=== PATIENT | male | born 1970 | race Caucasian/White ===

== ENCOUNTER 2016-11-25 22:23 | Inpatient (IN) | payer OTHER ==
[~2016-11-25] VITALS: Ht 175.3 cm; Wt 120.1 kg
[2016-11-25 22:39] VITALS: BP 172/92; PULSE 89; RESP 18; TEMP 98.3; O2SAT 99
[2016-11-25] MEDS ORDERED: ONDANSETRON ODT 4 MG TAB PO ONE (22:45)
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
[2016-11-26] VITALS (7 sets, daily range): BP systolic 125–156; BP diastolic 64–87; PULSE 72–89; RESP 18–20; TEMP 97–98.4; O2SAT 96–100
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
[2016-11-26] MEDS ORDERED: SODIUM CHLOR 0.9% 1000 ML INJ 1,000 ML IV ONE (02:45)
[2016-11-26] MEDS ORDERED: MORPHINE SULFATE 4 MG/ML INJ IV PUSH ONE (02:45)
[2016-11-26] MEDS ORDERED: SODIUM CHLORIDE 0.9% FLUSH 5 ML FLUSH IVF PRN (03:00)
[2016-11-26] MEDS ORDERED: MISCELLANEOUS NURSING INFORMATION XX SCH (03:00)
[2016-11-26] MEDS ORDERED: CHLORHEXIDINE GLUCONATE 2 % 1 PACK (2 CLOTHS) TOP PRN (03:00)
[2016-11-26] MEDS ORDERED: ACETAMINOPHEN/HYDROcodone 325 MG/5 MG TAB PO PRN (03:00)
[2016-11-26] MEDS ORDERED: ONDANSETRON HCL 4 MG/2 ML VIAL IV PRN (03:00)
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
[2016-11-26 03:39] LABS: BASOPHIL # 0.1 TH/MM3 (0-0.2); BASOPHIL % 0.3 % (0.0-2.0); EOSINOPHIL # 0.1 TH/MM3 (0-0.4); EOSINOPHIL % 0.3 % (0.0-4.0); HEMATOCRIT 41.5 % (39.0-51.0); HEMO FLAGS DIFF FINAL; LYMPH % 16.7 % (9.0-44.0); LYMPHOCYTE # 3.1 TH/MM3 (1.0-4.8); MEAN CELL VOLUME 88.8 FL (80.0-100.0); MEAN CORPUSCULAR HGB CONC 34.9 % (32.0-36.0); MONO % 5.9 % (0.0-8.0); NEUT % 76.8 % (16.0-70.0); PLATELET COUNT 257 TH/MM3 (150-450); RED BLOOD COUNT 4.67 MIL/MM3 (4.50-5.90); RED CELL DISTRIBUTION WIDTH 13.4 % (11.6-17.2); WHITE BLOOD COUNT 18.2 TH/MM3 (4.0-11.0)
[2016-11-26] MEDS: CHLORHEXIDINE GLUCONATE 2 % 1 PACK (2 CLOTHS) TOP SCH (04:00)
[2016-11-26 04:06] LABS: BICARBONATE 26.2 MEQ/L (21.0-32.0); POTASSIUM 3.6 MEQ/L (3.5-5.1)
[2016-11-26] MEDS: LACTATED RINGER'S 1000 ML INJ 1,000 ML IV SCH ×2 (04:18→14:43)
[2016-11-26 04:48] LABS: CKMB 4.9 NG/ML (0.5-3.6)
[2016-11-26] MEDS: ACETAMINOPHEN/HYDROcodone 325 MG/5 MG TAB PO PRN ×5 (05:09→21:21)
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
[2016-11-26] MEDS: ENOXAPARIN SODIUM 30 MG/0.3 ML SYRINGE SQ SCH ×2 (06:34→17:50)
[2016-11-26] MEDS: KETOROLAC TROMETHAMINE 30 MG/ML (IVP) VIAL IV PUSH SCH ×4 (06:34→23:32)
[2016-11-26] MEDS: METHOCARBAMOL 500 MG TAB PO SCH ×3 (06:34→21:13)
[2016-11-26] MEDS: DOCUSATE SODIUM 50 MG/SENNA 8.6 MG TAB PO SCH ×2 (09:07→21:12)
[2016-11-26] MEDS: FAMOTIDINE 20 MG TAB PO SCH ×2 (09:07→21:12)
[2016-11-26] MEDS: BACITRACIN/POLYMYXIN B 15 GM TUBE TOPICAL SCH ×2 (14:00→21:14)
[2016-11-26] MEDS: GABAPENTIN 400 MG CAP PO SCH ×2 (14:33→17:50)
[2016-11-26] MEDS: HYDROmorphone HCL PF 1 MG/ML VIAL IV PUSH PRN ×2 (14:36→23:33)
[2016-11-27] VITALS: BP 129/70; PULSE 68; RESP 20; TEMP 97.3; O2SAT 99
[2016-11-27] MEDS: ACETAMINOPHEN/HYDROcodone 325 MG/5 MG TAB PO PRN ×5 (03:25→22:11)
[2016-11-27] MEDS: LACTATED RINGER'S 1000 ML INJ 1,000 ML IV SCH ×2 (03:25→08:19)
[2016-11-27 04:00] VITALS: BP 131/73; PULSE 66; RESP 20; TEMP 96; O2SAT 99
[2016-11-27] MEDS: CHLORHEXIDINE GLUCONATE 2 % 1 PACK (2 CLOTHS) TOP SCH (04:00)
[2016-11-27] MEDS: METHOCARBAMOL 500 MG TAB PO SCH ×3 (06:07→22:09)
[2016-11-27] MEDS: KETOROLAC TROMETHAMINE 30 MG/ML (IVP) VIAL IV PUSH SCH ×3 (06:08→17:11)
[2016-11-27] MEDS: ENOXAPARIN SODIUM 30 MG/0.3 ML SYRINGE SQ SCH ×2 (06:08→17:01)
[2016-11-27 08:00] VITALS: BP 141/92; PULSE 65; RESP 18; TEMP 97.6; O2SAT 97
[2016-11-27] MEDS ORDERED: WALKER WHEELS/F1 MIS (08:08)
[2016-11-27] MEDS: GABAPENTIN 400 MG CAP PO SCH ×3 (08:12→17:10)
[2016-11-27] MEDS: FAMOTIDINE 20 MG TAB PO SCH ×2 (08:12→22:09)
[2016-11-27] MEDS: DOCUSATE SODIUM 50 MG/SENNA 8.6 MG TAB PO SCH ×2 (08:13→22:09)
[2016-11-27] MEDS: HYDROmorphone HCL PF 1 MG/ML VIAL IV PUSH PRN (11:30)
[2016-11-27] MEDS: BACITRACIN/POLYMYXIN B 15 GM TUBE TOPICAL SCH ×2 (11:35→22:11)
[2016-11-27 12:19] VITALS: BP 130/81; PULSE 69; RESP 18; TEMP 97.5; O2SAT 95
[2016-11-27] MEDS ORDERED: LACTULOSE SYRUP 20 GM/30 ML CUP PO SCH (15:15)
[2016-11-27 16:00] VITALS: BP 130/86; PULSE 74; RESP 18; TEMP 96.4; O2SAT 98
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
[2016-11-27 20:05] VITALS: BP 128/67; PULSE 71; RESP 20; TEMP 98.2; O2SAT 98
[2016-11-28] VITALS: BP 105/63; PULSE 71; RESP 20; TEMP 98.1; O2SAT 96
[2016-11-28] MEDS: KETOROLAC TROMETHAMINE 30 MG/ML (IVP) VIAL IV PUSH SCH ×3 (00:20→11:55)
[2016-11-28 04:00] VITALS: BP 125/67; PULSE 66; RESP 20; TEMP 96.9; O2SAT 98
[2016-11-28] MEDS: METHOCARBAMOL 500 MG TAB PO SCH ×2 (04:17→11:55)
[2016-11-28] MEDS: ENOXAPARIN SODIUM 30 MG/0.3 ML SYRINGE SQ SCH (04:17)
[2016-11-28 08:00] VITALS: BP 127/80; PULSE 97; RESP 20; TEMP 96.5; O2SAT 97
[2016-11-28] MEDS: FAMOTIDINE 20 MG TAB PO SCH (08:35)
[2016-11-28] MEDS: GABAPENTIN 400 MG CAP PO SCH ×2 (08:35→12:41)
[2016-11-28] MEDS: DOCUSATE SODIUM 50 MG/SENNA 8.6 MG TAB PO SCH (08:35)
[2016-11-28 12:44] VITALS: BP 111/76; PULSE 78; RESP 20; TEMP 98.2; O2SAT 95
[2016-11-28 16:05] VITALS: BP 143/80; PULSE 88; RESP 20; TEMP 97.3; O2SAT 98
[2016-11-28] MEDS ORDERED: METH500T3 PO (16:08)
[2016-11-28] MEDS ORDERED: IBUP800T23 PO (16:08)
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
== END 2016-11-28 17:49 | disposition home or self-care (01) | DRG 552 ==
LOC: NEPE 22:23 → NEDA 11-26 02:56 → N05B 11-26 06:45
PROVIDERS: ADMIT Surgery Trauma Surgery; ATTEND Surgery Trauma Surgery
DX: S32.028A Other fracture of second lumbar vertebra, initial encounter for closed fracture (principal); S06.9X9A Unspecified intracranial injury with loss of consciousness of unspecified duration, initial encounter; M25.512 Pain in left shoulder; M25.571 Pain in right ankle and joints of right foot; V23.4XXA Motorcycle driver injured in collision with car, pick-up truck or van in traffic accident, initial encounter; Y92.488 Other paved roadways as the place of occurrence of the external cause; Y93.89 Activity, other specified; S80.812A Abrasion, left lower leg, initial encounter; S30.811A Abrasion of abdominal wall, initial encounter; M54.5 Low back pain; S30.0XXA Contusion of lower back and pelvis, initial encounter; S20.20XA Contusion of thorax, unspecified, initial encounter; S40.019A Contusion of unspecified shoulder, initial encounter
CPT/HCPCS: 70450; 71250; 72125; 73030; 73610; 74176; 80048; 82550; 82552; 85025; 94150; J1170; J1650; J1885; J2270; J7030; J7120